=== PATIENT | female | born 1970 | race Hispanic/Latino ===

== ENCOUNTER 2018-08-21 10:38 | Emergency (ER) | payer SELFPAY ==
[~2018-08-21] VITALS: Ht 157.5 cm; Wt 122.9 kg
--- NOTE | 2018-08-21 11:17 | NUR ---
SEE DOWNTIME FORM
[2018-08-21] MEDS ORDERED: KETOROLAC TROMETHAMINE 60 MG/2 ML VIAL ONE (11:22)
[2018-08-21] MEDS ORDERED: DEXAMETHASONE SOD PHOS 10 MG/1 ML VIAL ONE (11:22)
[2018-08-21] MEDS ORDERED: KETOROLAC TROMETHAMINE 60 MG/2 ML VIAL IM ONE (11:30)
[2018-08-21] MEDS ORDERED: DEXAMETHASONE SOD PHOS 10 MG/1 ML VIAL IM ONE (11:30)
--- OUTSIDE RECORDS SUMMARY | 2018-08-21 11:34 | XMS REPORT ---
Author Author Admin, [place] Organization [facility] Address Unknown Phone Unavailable Allergies, Adverse Reactions, Alerts Allergy Name Reaction Description Start Date Severity Status Provider BACTRIM Critical Active Neftaly Armstrong MD Conditions or Problems Problem Name Problem Code Onset Date Status Entry Date Provider Comment Standard Description Annotate Essential hypertension 401.1 Active Neftaly Armstrong MD Benign essential hypertension Boils, recurrent 680.9 Active Neftaly Armstrong MD Carbuncle and furuncle of unspecified site Upper respiratory infection 465.9 Active Neftaly Armstrong MD Acute upper respiratory infections of unspecified site Ingrowing nail with infection 703.0 Active Neftaly Armstrong MD Ingrowing nail Medication List Medication Instructions Start Date Stop Date Generic Name NDC Status Provider Patient Instruction LISINOPRIL-HYDROCHLOROTHIAZIDE 20-25 MG ORAL TABLET 1 by mouth daily LISINOPRIL-HYDROCHLOROTHIAZIDE 72108699793 Active Neftaly Armstrong MD Active TYLENOL WITH CODEINE #3 300-30 MG ORAL TABLET 1 by mouth at bedtime as needed ACETAMINOPHEN-CODEINE 69679549913 Active Neftaly Armstrong MD Active CEPHALEXIN 500 MG ORAL CAPSULE 1 cap by mouth three times a day CEPHALEXIN 50891912350 Active Neftaly Armstrong MD Active Vital Signs Date Name Value Unit Range Description blood pressure, diastolic 85 mm[Hg] BP moser blood pressure, systolic 141 mm[Hg] BP sys height E&M 62 [in_us] Bdy height pulse rate E&M 93 /min Heart rate temperature E&M 98.2 [degF] Body temperature weight E&M 262.13 [lb_av] Weight Measured blood pressure, diastolic 74 mm[Hg] BP moser blood pressure, systolic 109 mm[Hg] BP sys height E&M 62 [in_us] Bdy height pulse rate E&M 82 /min Heart rate respiratory rate E&M 18 /min Resp rate temperature E&M 98.0 [degF] Body temperature weight E&M 261.13 [lb_av] Weight Measured blood pressure, diastolic 78 mm[Hg] BP moser blood pressure, systolic 125 mm[Hg] BP sys height E&M 62 [in_us] Bdy height pulse rate E&M 86 /min Heart rate respiratory rate E&M 18 /min Resp rate temperature E&M 97.8 [degF] Body temperature weight E&M 259 [lb_av] Weight Measured blood pressure, diastolic 79 mm[Hg] BP moser blood pressure, systolic 132 mm[Hg] BP sys height E&M 62 [in_us] Bdy height pulse rate E&M 108 /min Heart rate respiratory rate E&M 20 /min Resp rate temperature E&M 98. [degF] Body temperature weight E&M 271.38 [lb_av] Weight Measured blood pressure, diastolic 78 mm[Hg] BP moser blood pressure, systolic 114 mm[Hg] BP sys height E&M 62 [in_us] Bdy height pulse rate E&M 98 /min Heart rate respiratory rate E&M 19 /min Resp rate temperature E&M 98.8 [degF] Body temperature weight E&M 268.20 [lb_av] Weight Measured Encounters Date Encounter Provider Code Facility 11:09:59 CDT Est Patient Exp Problem - [id number] Neftaly Armstrong MD [id number] [facility] 11:34:08 CDT Est Patient Exp Problem - [id number] Neftaly Armstrong MD [id number] [facility] 16:30:42 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
--- OUTSIDE RECORDS SUMMARY | 2018-08-21 11:34 | XMS REPORT ---
Author Author [facility] Address Unknown Phone Unavailable Care Team Providers Care E Commerce Director Name Role Phone Unavailable Unavailable Payers Payer Name Policy Type Policy Number Effective Date Expiration Date Problems This patient has no known problems. Allergies, Adverse Reactions, Alerts Allergy Name Allergy Type Status Severity Reaction(s) Onset Date Inactive Date Treating Clinician Comments sulfamethoxazole DA Active U 2018-05-10 00:00:00 trimethoprim DA Active U 2018-05-10 00:00:00 sulfamethoxazole DA Active U 2018-05-07 00:00:00 trimethoprim DA Active U 2018-05-07 00:00:00 sulfamethoxazole DA Active U 2017-05-22 00:00:00 trimethoprim DA Active U 2017-05-22 00:00:00 Medications This patient has no known medications.
== END 2018-08-21 11:57 | disposition left against medical advice (07) ==
LOC: ER 10:38
DX: M54.41 Lumbago with sciatica, right side (principal); E66.9 Obesity, unspecified; Z68.42 Body mass index [BMI] 45.0-49.9, adult; I10 Essential (primary) hypertension; E78.5 Hyperlipidemia, unspecified; K76.9 Liver disease, unspecified; Z88.2 Allergy status to sulfonamides
CPT/HCPCS: 99283; J1100; J1885

== ENCOUNTER → 2023-11-06 | Outpatient (REF) | payer OTHER | LOC: MRI 11:37 | PROVIDERS: ATTEND Family Medicine | DX: S46.912D Strain of unspecified muscle, fascia and tendon at shoulder and upper arm level, left arm, subsequent encounter (principal); M25.512 Pain in left shoulder; R29.898 Other symptoms and signs involving the musculoskeletal system; W01.0XXD Fall on same level from slipping, tripping and stumbling without subsequent striking against object, subsequent encounter; Z02.6 Encounter for examination for insurance purposes ==